=== PATIENT | male | born 1980 | race African-American/Black ===

== ENCOUNTER 2017-01-18 07:10 | Emergency (ER) | payer SELFPAY ==
[~2017-01-18] VITALS: Wt 130.0 kg
[2017-01-18] MEDS ORDERED: TETRACAINE 0.5% 4 ML OPH BOTH EYES ONE (07:30)
[2017-01-18] MEDS ORDERED: FLUORESCEIN STRIP LEFT EYE ONE (07:30)
[2017-01-18] MEDS ORDERED: HYDROCODONE/APAP (5/325) TAB PO ONE (08:00)
--- NOTE | 2017-01-18 08:36 | ERD ---
ER Documentation Chief Complaint Date/Time DATE: 01/18/17 TIME: 08:32 Chief Complaint LEFT EYE PAIN AND PRESSURE STARTED YESTERDAY AFTER COUGHING PER PT HPI 36-year-old male otherwise healthy comes in with left posterior eye pain that is a pressure-like sensation that started yesterday after coughing. Patient states that he had a small coughing episode yesterday afternoon, then he gradually had pressure-like pain behind the left eye. There is associated pain surrounding the eye on the forehead and restorationist region. She he denies any blurry vision, diplopia, curtainlike sensation or floaters. Patient denies any nausea or vomiting. He denies any eye trauma. ROS All systems reviewed and are negative except as per history of present illness. PMhx/Soc Medical and Surgical Hx: pt denies Medical Hx, pt denies Surgical Hx Hx Substance Use: No Hx Tobacco Use: Yes Smoking Status: Current every day smoker Physical Exam Vitals Vital Signs Date Time Temp Pulse Resp B/P Pulse Ox O2 Delivery O2 Flow Rate FiO2 01/18/17 07:11 98.1 82 18 182/98 99 Physical Exam General: Well-developed, well-nourished. The patient appears in no acute distress. HEENT: Head is normocephalic, atraumatic. No scleral icterus. Eye Exam: Visual Ortiz: Intact in all four quadrants bilaterally Lac ducts/glands: No swelling Lids w/ evertion: Normal, no foreign body Conj/[place]: Clear, negative Fluorescein/Cirilo's Anterior Chamber: Clear, no hyphema. Tonopen readings: Right eye 28, left eye 20 Neck: Supple. Nontender. Lungs: Clear to auscultation. Normal air movement. Heart: Regular rate and rhythm. S1 and S2 are normal. No murmurs, gallops, or rubs. Abdomen: Nondistended. Extremities: No clubbing or cyanosis. Moving extremities x 4. No weakness. Neurologic: Alert and oriented 3. No focal deficits. Normal speech and gait. Skin: Normal turgor. No rash or lesions. Results 24 hrs Current Medications Medications (Trade) Dose Ordered Sig/Edilberto Route PRN Reason Start Time Stop Time Status Last Admin Dose Admin Tetracaine HCl (Tetracaine 0.5% Steri-Unit Katey) 1 drop ONCE ONCE BOTH EYES 4/6/17 07:30 01/18/17 07:31 DC Fluorescein Sodium (Tjdgf-U-Gaaip) 1 strip ONCE ONCE LEFT EYE 01/18/17 07:30 01/18/17 07:31 DC Acetaminophen/ Hydrocodone Bitart ([place] (5/325)) 1 tab ONCE ONCE PO 01/18/17 08:00 01/18/17 08:01 DC 01/18/17 07:55 Procedures/MDM 36-year-old male comes in with left eyes pain after coughing yesterday. Patient 's eye examination is unremarkable, there is no hyphema, no hypopyon, no injection, no acute angle-closure glaucoma, orbital cellulitis, signs of trauma , fracture, entrapment, globe rupture. Patient's Sravan-Pen readings are within normal limits in the emergency department. It was discussed that patient needs to follow-up with an electronic warfare officer, given his eye examination is normal, that he is stable to be discharged. He was given referral information to [facility], he may also go to a [facility] facility including [facility] or [facility] for follow-up care today. The case was reviewed and discussed with Dr. Gomes who agrees with the plan of care including labs, treatment, and advanced imaging as appropriate. Departure Diagnosis: Primary Impression: Eye problem Condition: Good Patient Instructions: How the Eye Works Referrals: [facility] YOU HAVE RECEIVED A MEDICAL SCREENING EXAM AND THE RESULTS INDICATE THAT YOU DO NOT HAVE A CONDITION THAT REQUIRES URGENT TREATMENT IN THE EMERGENCY DEPARTMENT. FURTHER EVALUATION AND TREATMENT OF YOUR CONDITION CAN WAIT UNTIL YOU ARE SEEN IN YOUR DOCTORS OFFICE WITHIN THE NEXT 1-2 DAYS. IT IS YOUR RESPONSIBILITY TO MAKE AN APPOINTMENT FOR FOLOW-UP CARE. IF YOU HAVE A PRIMARY DOCTOR --you should call your primary doctor and schedule and appointment IF YOU DO NOT HAVE A PRIMARY DOCTOR YOU CAN CALL OUR PHYSICIAN REFERRAL HOTLINE AT . IF YOU CAN NOT AFFORD TO SEE A PHYSICIAN YOU CAN CHOSE FROM THE FOLLOWING [facility] INSTITUTIONS: [facility] [address] [place] [address] [facility] [address] [place] [address] [facility] + [facility] [address] [place] [address] [facility] Hours: Mon - Fri 9:00 AM - 5:00 PM Additional Instructions: PUBLIC HEALTH TECHNOLOGIST, an electronic warfare officer: YOU HAVE A MEDICAL CONDITION WHICH REQUIRES YOU TO SEE A SPECIALIST TODAY. PLEASE FOLLOW UP WITH YOUR PRIMARY PHYSICIAN FOR REFFERAL.IF YOU DO NOT HAVE A PRIMARY CARE PHYSICIAN AND/OR YOU CAN NOT AFFORD TO SEE A PHYSICIAN THE FOLLOWING RESOURCES HAVE BEEN SUPPLIED TO YOU. IT IS YOUR RESPONSIBILITY TO BE SEEN BY THE SPECIALIST JASBIR AC PA-C Jan 18, 2017 08:36
== END 2017-01-18 08:34 | disposition home or self-care (01) ==
LOC: FTE 07:10
DX: H57.8 Other specified disorders of eye and adnexa (principal); F17.210 Nicotine dependence, cigarettes, uncomplicated
CPT/HCPCS: 99283